=== PATIENT | male | born 2000 | race Caucasian/White ===

== ENCOUNTER 2023-01-29 12:35 | Emergency (ER) | payer BC, SELFPAY ==
[2023-01-29 12:41] VITALS: BP 128/72; PULSE 67; RESP 18; TEMP 36.6; O2SAT 99; BMI 22.4
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
[2023-01-29] MEDS: LIDOCAINE HCL 1%-EPINEPHRINE 1:100,000 20 ML MDV 10 ML INJ (14:19)
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
== END 2023-01-29 16:06 | disposition home or self-care (01) ==
PROVIDERS: Emergency Provider Emergency Medicine; PCP Nurse Practitioner
DX: S01.112A Laceration without foreign body of left eyelid and periocular area, initial encounter (principal); S00.83XA Contusion of other part of head, initial encounter; S02.2XXA Fracture of nasal bones, initial encounter for closed fracture; Y04.0XXA Assault by unarmed brawl or fight, initial encounter
CPT/HCPCS: 12011; 70486; 99285